=== PATIENT | female | born 1945 | race Caucasian/White ===

== ENCOUNTER 2021-04-13 10:35 | Inpatient (IN) | payer OTHER, BC ==
--- NOTE | ~2021-04-13 | D ---
[facility] [address] [place] [address] DISCHARGE SUMMARY Name: KARLA LOWRY Room #: 245-P [facility] IN M.R.#: [id number] Admission: 04/13/21 Attend Phys: Cornelius Morgan MD, Discharge: 04/13/21 Date of : 41 Report #: [id number] THIS REPORT FOR: cc: FAM - Family physician unknown FAM - Family physician unknown Cornelius Morgan MD [facility] ~ DATE OF SERVICE: 04/13/2021 SUMMARY HOSPITAL COURSE: The patient is a 76-year-old female who was transferred here from [facility] in [facility]. She has had some progressive dyspnea, shortness of breath and apparently initial symptoms were 4-5 weeks ago and had the hospital ER visit, and then subsequently continued to worsen and was presented to the Emergency Room at [place], [place] last night with progressive dyspnea and shortness of breath. Subsequently, come to find significant bilateral pulmonary embolisms, which were extensive. She was borderline hemodynamically stable and was transferred for thrombectomy. Systolic pressure 90-100 with saturations 90-92% on oxygen, brought to the catheterization lab, interventional radiology lab, by Dr. Reddy of Interventional Radiology and myself for essentially total occlusion of bilateral pulmonary arteries. He utilized an Inari device and Penumbra device, both devices were utilized in bilateral pulmonary arteries with some moderate old fibrin and clot formation. This appeared to be a significant old organized thrombus and fibrin. There was some improvement in hemodynamics initially and intubation was also performed by Emergency Room physician. She had some hypotension. There was 1 period of VF which required defibrillation. There was pressor support and ACLS protocols with bicarbonate for acidosis. Multiple passes and attempts with some moderate response initially with intermittent blood pressures systolic up to 100 could not sustain her hemodynamically. The echo Doppler showed significant right-sided enlargement with volume and pressure overload with septal flattening and a severely dilated right ventricle, pulmonary pressures - mean pressure was around 50 here in the specialist employee labor relations at the initiation of the procedure. This was an extensively long 2-3 hour period with maxed out Levophed and dopamine. There was son and daughter present, had extensive conversation, and also concerned about a possible neurologic rebound here, although there was no prolonged downtime. There is lot of hypoperfusion I suspect. They did not want to proceed on with further heroic measures. We withdrew the pressor support and then also they requested extubation here and this was performed in the catheterization lab. They were able to see her intubated and then wanted to see her after. I was able to call the code at [phone]. DISCHARGE DIAGNOSES: 1. Extensive/massive bilateral pulmonary embolism. 2. History of coronary artery disease with remote stents placed 13 years ago. 3. Hypertension. 4. Hypercholesterolemia. [facility] [address] [place] [address] DISCHARGE SUMMARY Name: KARLA LOWRY Room #: 245-P [facility] IN M.R.#: [id number] Admission: 04/13/21 Attend Phys: Cornelius Morgan MD, Discharge: 04/13/21 Date of : 41 Report #: [id number] 5. Chronic obstructive pulmonary disease. 6. Degenerative joint disease. Thank you for allowing to assist in the care of this patient. By: [id number] Cornelius Morgan MD, FACC /nt
--- NOTE | ~2021-04-13 | O ---
[facility] [address] [place] [address] OPERATIVE REPORT Name: KARLA LOWRY Room #: 245-P [facility] IN M.R.#: [id number] Admission: 04/13/21 Attend Phys: Cornelius Morgan MD, Discharge: 04/13/21 Date of : 41 Report #: [id number] THIS REPORT FOR: cc: FAM - Family physician unknown FAM - Family physician unknown Cornelius Morgan MD [facility] ~ DATE OF SERVICE: 04/13/2021 PROCEDURE NOTE The patient was in the catheterization lab. Interventional radiologist, Dr. Reddy had attempted extraction of massive bilateral pulmonary embolism. Subsequently, called for assistance with code blue, hypotension, dysrhythmias. This was a prolonged essentially long code situation. We had made multiple passes with two separate devices; Penumbra device and Inari device. There were multiple extractions of the old fibrous type clot. This was not fresh clot. There was episode of VF requiring defibrillation. There were multiple episodes of CPR and ACLS protocol was followed. Bicarbonate, calcium and marked elevation in sugars in addition. There was some return of blood pressure with maxed out dopamine and Levophed, boluses of phenylephrine and then boluses of epinephrine. I had multiple discussions with her son and daughter who were here. The patient had been intubated by the Emergency Room physician early when the initial hypotension and hemodynamic compromise was noted. Oxygenation did improve with the acidosis. Subsequently with maxed out pressors, we could not sustain her blood pressure, renal insufficiency underlying, COPD underlying, age underlying. Chance of any meaningful recovery was essentially nonexistent. I discussed with the family prior to withdrawing pressor support and ventilator. They did and were able to see the patient in the room while on pressor support and ventilation. They then requested as we were not able to maintain that pressure, no further heroic measures. We subsequently stopped pressors and extubated the patient. The family was able to review their mother. They were extremely grateful to the staff. I should note a Bradgate-Kamryn catheter was placed and right-sided pressure measurements obtained post-procedure. This was to be left in for monitoring, but we have withdrawn care. DISCHARGE DIAGNOSIS: Massive pulmonary embolism. PROCEDURES PERFORMED: 1. Bradgate-Kamryn catheter for monitoring. 2. CPR for code blue. 3. Defibrillation for ventricular fibrillation. 4. Prolonged episode of at least two hours of critical care performed in [facility] [address] [place] [address] OPERATIVE REPORT Name: KARLA LOWRY Room #: 245-P [facility] IN .R.#: [id number] Admission: 04/13/21 Attend Phys: Cornelius Morgan MD, Discharge: 04/13/21 Date of : 41 Report #: [id number] assistance with [address] Reddy for multiple passes of clot and fibrin extraction. See his dictated report. By: [id number] Cornelius Morgan MD, FACC /nt
--- NOTE | 2021-04-13 13:11 | 2DMMODE ---
[facility] [place] [address] [place] [address] 2 D/M-MODE ECHOCARDIOGRAM Name: KARLA LOWRY Room #: PRE IN [facility]#: [id number] Admission: Attend Phys: Cornelius Morgan MD, Discharge: Date of : 41 Report #: [id number] THIS REPORT FOR: cc: FAM - Family physician unknown FAM - Family physician unknown Srinivas Garcia MD [facility] ~ APPROVED REPORT Study performed: 04/13/2021 12:20:02 EXAM: Comprehensive 2D, Doppler, and color-flow Echocardiogram Patient Location: CV Lab Room #: 9 Status: routine BSA: 1.93 HR: 105 bpm BP: 98/71 mmHg Rhythm: Tachycardia Other Information Study Quality: Good Indications Pulmonary Embolism Pulmonary Hypertension 2D Dimensions RVDd: 59.49 mm IVSd: 14.83 (7-11mm) LVOT Diam: 23.20 (18-24mm) LVDd: 30.87 mm PWd: 14.55 (7-11mm) Ascending Ao: 34.22 (22-36mm) LVDs: 22.73 (25-40mm) Left Atrium: 36.10 (27-40mm) Aortic Root: 31.31 mm IVC: 30.00 mm Volumes Left Atrial Volume (Systole) Single Plane 4CH: 43.69 mL Single Plane 2CH: 42.14 mL LA ESV Index: 24.00 mL/m2 Aortic Valve AoV Peak Can.: 1.14 m/s AO Peak Gr.: 5.20 mmHg LVOT Max P.44 mmHg LVOT Max V: 0.78 m/s [facility] [address] [place] [address] 2 D/M-MODE ECHOCARDIOGRAM Name: KARLA LOWRY Room #: PRE [facility]#: [id number] Admission: Attend Phys: Cornelius Morgan, Discharge: Date of : 41 Report #: [id number] PRIMITIVO Vmax: 2.90 cm2 Pulmonary Valve PV Peak Can.: 0.68 m/s PV Peak Gr.: 1.84 mmHg Tricuspid Valve TR Peak Can.: 3.26 m/s TR Peak Gr.: 42.49 mmHg PA Pressure: 57.00 mmHg Left Ventricle The left ventricle is normal size. Flattened septum consistent with right ventricular volume and pressure overload. Mild concentric left ventricular hypertrophy. The left ventricular systolic function is normal. The left ventricular ejection fraction is within the normal range. LVEF is 60-65%. Mild diastolic dysfunction Right Ventricle Right ventricle is severely dilated. Right ventricle is severely hypokinetic. Atria The left atrium size is normal. Right atrium is dilated. Aortic Valve The aortic valve is mildly calcified, trileaflet No aortic regurgitation is present. There is no aortic valvular stenosis. Mitral Valve The mitral valve is normal in structure. Mild mitral regurgitation. No evidence of mitral valve stenosis. Tricuspid Valve The tricuspid valve is normal in structure. There is moderate tricuspid regurgitation. Estimated PAP 55 mmHg. There is moderate pulmonary hypertension. Pulmonic Valve The pulmonary valve is normal in structure. Trace to mild pulmonic regurgitation. Great Vessels The aortic root is normal in size. The inferior vena cava is dilated with no inspiratory collapse. [facility] [address] [place] [address] 2 D/M-MODE ECHOCARDIOGRAM Name: KARLA LOWRY Room #: PRE IN [facility].#: [id number] Admission: Attend Phys: Cornelius Morgan, Discharge: Date of : 41 Report #: [id number] Pericardium There is no pericardial effusion. <Conclusion> The left ventricular systolic function is normal. Flattened septum consistent with right ventricular volume and pressure overload. LVEF is 60-65%. Mild diastolic dysfunction Right ventricle and atrium are severely dilated. Severe RV dysfunction The aortic valve is mildly calcified, trileaflet. No aortic regurgitation or stenosis The mitral valve is normal in structure. Mild mitral regurgitation. There is moderate tricuspid regurgitation. Estimated pulmonary artery pressure of 55 mmHg. There is no pericardial effusion. <ELECTRONICALLY SIGNED> By: Srinivas Garcia MD, [facility] 04/13/21 1311 131 1311 Srinivas Garcia MD, FACC /INF
[2021-04-13 14:30] LABS: BE(vivo) -20.5 mmol/L (-2 to +3); HCO3 10.2 mmol/L (22.0-26.0); PCO2 42.6 mmHg (35.0-45.0); PO2 103.9 mmHg (80.0-100.0); sO2 94.3 % (92.0-98.0)
[2021-04-13 14:31] LABS: pH 6.997 (7.360-7.450)
[2021-04-13 15:38] LABS: HEMOGLOBIN 8.5 gm/dL (12.0-15.0); WBC 9.1 thou/uL (4.0-11.0)
[2021-04-13 15:39] LABS: HEMATOCRIT 30.3 % (37.0-47.0); MCH 32.4 pg (26.0-34.0); MCHC 28.1 g/dL (28.0-37.0); MCV 115.5 fL (80.0-100.0); PLATELET COUNT 113 thou/uL (150-400); RBC 2.62 mil/uL (4.20-5.00)
[2021-04-13 16:09] LABS: CALCIUM 8.3 mg/dL (8.5-10.1); CREATININE 1.7 mg/dL (0.6-1.0); POTASSIUM 5.5 mmol/L (3.5-5.1)
[2021-04-13 16:15] LABS: ALBUMIN 1.4 g/dL (3.4-5.0); TOTAL BILIRUBIN 0.8 mg/dL (0.2-1.0); TOTAL PROTEIN 3.1 g/dL (6.4-8.2)
[2021-04-13 16:18] LABS: ABSOLUTE NEUTROPHILS 6.3 thou/uL (1.4-8.2); BURR CELLS FEW; NUCLEATED RBCS 3 /100WBC
[2021-04-13 16:20] LABS: LARGE PLATELETS OCCASIONAL
[2021-04-13 16:22] LABS: INR 1.57; PROTIME 16.8 Seconds (10.5-12.1)
[2021-04-13 16:35] LABS: BE(vivo) -20.9 mmol/L (-2 to +3); HCO3 10.8 mmol/L (22.0-26.0); PCO2 59.9 mmHg (35.0-45.0); PO2 93.8 mmHg (80.0-100.0); sO2 89.1 % (92.0-98.0)
[2021-04-13 16:36] LABS: pH 6.873 (7.360-7.450)
--- NOTE | 2021-04-14 09:21 | EKG ---
[address] [facility] [place] [address] ELECTROCARDIOGRAM REPORT Name: KARLA LOWRY Room #: 245-P [facility]#: [id number] Admission: 04/13/21 Attend Phys: Cornelius Morgan MD, Discharge: 04/13/21 Date of : 41 Report #: [id number] [facility] Test Date: 2021-04-13 Test Time: 10:58:18 Pat Name: KARLA LOWRY Department: Room: Gender: F [employer]: : 1945 Requested By: Cornelius Morgan Order Number: [id number] MD: Thomas Hauser Measurements Intervals [place] Rate: 105 P: 52 WI: 166 QRS: 86 QRSD: 117 T: -45 QT: 356 QTc: 471 Interpretive Statements Sinus tachycardia Ventricular premature complex Probable left atrial enlargement Incomplete right bundle branch block Inferior infarct, age indeterminate Anterolateral infarct, age indeterminate No previous ECG available for comparison Electronically Signed On 04-14-2021 9:21:32 CDT by Thomas Hauser [email or web address] <ELECTRONICALLY SIGNED> By: Thomas Hauser MD, [facility] 04/14/21920 1058 1058 Thomas Hauser MD, [facility] /EPI
== END 2021-04-13 17:10 | DRG 163 ==
LOC: PRE 10:35 → ICU 15:42
PROVIDERS: Nuclear Medicine Nuclear Cardiology; Nurse Practitioner Adult Health; ADMIT Internal Medicine Cardiovascular Disease; ATTEND Internal Medicine Cardiovascular Disease
DX: I26.99 Other pulmonary embolism without acute cor pulmonale (principal); J96.20 Acute and chronic respiratory failure, unspecified whether with hypoxia or hypercapnia; I25.10 Atherosclerotic heart disease of native coronary artery without angina pectoris; Z95.5 Presence of coronary angioplasty implant and graft; I10 Essential (primary) hypertension; E78.00 Pure hypercholesterolemia, unspecified; J44.9 Chronic obstructive pulmonary disease, unspecified; F41.9 Anxiety disorder, unspecified; M19.90 Unspecified osteoarthritis, unspecified site; I49.01 Ventricular fibrillation; E78.5 Hyperlipidemia, unspecified; F17.210 Nicotine dependence, cigarettes, uncomplicated; I46.9 Cardiac arrest, cause unspecified
CPT/HCPCS: 10203; 58598